=== PATIENT | male | born 1990 | race American Indian/Alaskan Native ===

== ENCOUNTER 2017-10-09 09:34 | Emergency (ER) | payer OTHER ==
[2017-10-09 11:05] VITALS: BP 159/87
--- NOTE | 2017-10-09 11:11 | Emergency Department Report ---
HPI - General Chief Complaint: Dental/Oral Time Seen by Provider: 10/09/17 11:10 - HPI HPI: Patient here reports toothache to right lower back tooth. He said it started 2 days ago and does not have access to a dentist. Denies any facial swelling. Denies any fever or chills. Denies any nausea vomiting. Denies any sore throat , drooling or difficulty swallowing. Denies any trauma. Pain is 10 out of 10 and is being use an [id number] pain medication without any relief. ED Past Medical Hx - Past Medical History Previous Medical History?: No - Surgical History Past Surgical History?: No - Family History Family history: hypertension - Social History Smoking Status: Current Some Day Smoker Substance Use Type: Alcohol - Medications Home Medications: Home Medications Medication Instructions Recorded Confirmed Last Taken Type Acetaminophen/Codeine [Tylenol 1 tab PO Q6H PRN 3 Days #12 tab 10/09/17 Unknown Rx /Codeine # 3 tab] Ibuprofen [Motrin] 600 mg PO Q8H PRN 7 Days #21 tablet 10/09/17 Unknown Rx Penicillin V Potassium 500 mg PO Q8H 10 Days #20 tablet 10/09/17 Unknown Rx ED Review of Systems ROS: Stated complaint: MOUTH PAIN Other details as noted in HPI Comment: All other systems reviewed and negative Constitutional: no symptoms reported Eyes: denies: eye pain, eye discharge ENT: dental pain. denies: ear pain, throat pain, congestion Respiratory: no symptoms reported Cardiovascular: denies: chest pain, palpitations, dyspnea on exertion, orthopnea , edema, syncope, paroxysmal nocturnal dyspnea Gastrointestinal: denies: abdominal pain, nausea, vomiting, diarrhea, constipation Musculoskeletal: denies: back pain, joint swelling, arthralgia, myalgia Skin: denies: rash Neurological: denies: headache, weakness, numbness, paresthesias, confusion, abnormal gait Physical Exam - Physical Exam Vital Signs: Vital Signs 10/09/17 11:03 Temperature 98.4 F Pulse Rate 63 Respiratory 18 Rate Blood Pressure 159/87 O2 Sat by Pulse 100 Oximetry General: This is a 27-year-old male well-nourished well-developed in no acute distress Physical Exam: Head: Normocephalic atraumatic Ears:BIateral TM congested without erythema and loss of bony landmarks. Sanjay EAC with normal exam. No mastoid bone tenderness. Mouth: Moist, no pharyngeal erythema or exudate . Patient with multiple dental caries, multiple missing tooth, dental tenderness to tooth #32. No cellulitis or induration noted. No facial swelling noted No tonsillar erythema or exudate. UVULA midline and oral airways patent. No peritonsillar abscess. Positive gingival inflammation Neck: Nontender to palpate, supple, normal range of motion. No adenopathy. No c- spine tenderness. Nose: Bilateral nasal mucosa normal. Maxillary and frontal sinuses non-tender to palpate. Eyes: Sclerae and conjunctiva without injection. Bilateral pupils equal and reactive to light. Bilateral lids are normal. Normal accommodation.BEOMI Lungs: Clear to auscultate bilaterally, no rhonchi wheezes or rales. Normal work of breathing and no chest wall tenderness CV: S1, S2. Regular rate and rhythm negative murmur. Capillary refill is less than 3 seconds Skin: Clean dry and intact, no rashes or lesions Psych: Normal mood and behavior ED Course Vital Signs 10/09/17 11:03 Temperature 98.4 F Pulse Rate 63 Respiratory 18 Rate Blood Pressure 159/87 O2 Sat by Pulse 100 Oximetry - Reevaluation(s) Reevaluation #1: 10/09/17 11:43 She is stable throughout ED stay ED Medical Decision Making - Medical Decision Making ED course: Patient here complaining of toothache 2 days. He does not have any dental care. Patient found to have gingivitis, dental caries, multiple dental symptoms and tenderness around tooth #32. I discussed with him that I'll place him on antibiotic and pain medication but he'll need to follow up with a dentist to fix underlying problems. He voiced understanding the discharge instruction and treatment plan and discharged home with his family with prescription for Tylenol No. 3, Motrin and penicillin V. Critical care attestation.: If time is entered above; I have spent that time in minutes in the direct care of this critically ill patient, excluding procedure time. ED Disposition Clinical Impression: Gingivitis, Dental caries, Tooth ache Disposition: TO HOME OR SELFCARE Is pt being admited?: No Does the pt Need Aspirin: No Condition: Stable Instructions: Dental Caries (ED), Toothache (ED), Gingivitis (ED) Additional Instructions: Please gargle with mouthwash twice daily Floss twice daily Follow-up with [facility] dental clinic as discussed. Call tomorrow to schedule an appointment Please of a drive or operate heavy machinery while taking Tylenol No. 3 as this medication will cause drowsiness take Antibiotic as prescribed Prescriptions: Acetaminophen/Codeine [Tylenol /Codeine # 3 tab] 1 tab PO Q6H PRN 3 Days #12 tab PRN Reason: Pain, Moderate (4-6) Ibuprofen [Motrin] 600 mg PO Q8H PRN 7 Days #21 tablet PRN Reason: Pain Penicillin V Potassium 500 mg PO Q8H 10 Days #20 tablet Referrals: [facility] [Outside] - 3-5 Days [facility] [Outside] - 3-5 Days Forms: Accompanied Note, Work/School Release Form(ED)
== END 2017-10-09 12:00 | disposition home or self-care (01) ==
LOC: ED 09:34
DX: K02.9 Dental caries, unspecified (principal); K05.10 Chronic gingivitis, plaque induced; F17.200 Nicotine dependence, unspecified, uncomplicated
CPT/HCPCS: 99282